=== PATIENT | female | born 1945 | race Caucasian/White ===

== ENCOUNTER → 2019-07-13 | Outpatient (CLI) | payer OTHER | LOC: SJCVCIMAG 14:11 | DX: I47.1 Supraventricular tachycardia (principal); R00.2 Palpitations; Z95.818 Presence of other cardiac implants and grafts ==

== ENCOUNTER → 2020-07-26 | Outpatient (CLI) | payer OTHER ==
[~2020-07-26] MED LIST: ASPIR 8181 MG PO; CITRACAL + BON1 EACH PO; CLOBETASOL PROP15 GM TP; LEVOTHYROXIN0.025 MG PO; MOBIC7.5 MG PO; MORPHINE SULFAT15 M3 PO; NASONEX17 GM NASAL; NEURONTIN 300300 M1 PO; OMEPRAZOLE20 M1 PO; TOPROL XL25 MG PO; VITAMINC500 PO; ZOCOR20 MG PO
== END ==
LOC: SJCVC 14:20
PROVIDERS: ATTEND Internal Medicine Cardiovascular Disease
DX: R94.31 Abnormal electrocardiogram [ECG] [EKG] (principal); I47.1 Supraventricular tachycardia; R00.2 Palpitations; M19.90 Unspecified osteoarthritis, unspecified site; Z72.89 Other problems related to lifestyle; Z95.818 Presence of other cardiac implants and grafts; Z79.82 Long term (current) use of aspirin; Z79.899 Other long term (current) drug therapy; Z88.1 Allergy status to other antibiotic agents; Z88.8 Allergy status to other drugs, medicaments and biological substances

== ENCOUNTER → 2021-04-04 | Outpatient (CLI) | payer OTHER | LOC: HYPER 08:44 | PROVIDERS: ATTEND Emergency Medicine | DX: S61.402A Unspecified open wound of left hand, initial encounter (principal); R60.0 Localized edema; I10 Essential (primary) hypertension; E03.9 Hypothyroidism, unspecified; M21.371 Foot drop, right foot; W19.XXXD Unspecified fall, subsequent encounter ==

== ENCOUNTER 2021-04-18 10:17 | Inpatient (IN) | payer OTHER ==
[~2021-04-18] VITALS: Ht 165.1 cm; Wt 55.0 kg
[2021-04-18 10:18] VITALS: BP 160/71
[2021-04-18 11:11] LABS: ABSOLUTE NEUTROPHILS 11.2 thou/uL (1.4-8.2); BASOPHILS 0.4 % (0.0-2.0); EOSINOPHILS 0.2 % (0.0-3.0); HEMATOCRIT 43.6 % (37.0-47.0); HEMOGLOBIN 13.8 gm/dL (12.0-15.0); LYMPHOCYTES 11.5 % (24.0-44.0); MCH 30.3 pg (26.0-34.0); MCHC 31.7 g/dL (28.0-37.0); MCV 95.6 fL (80.0-100.0); MONOCYTES 7.6 % (1.0-8.0); PLATELET COUNT 239 thou/uL (150-400); POLYS 80.3 % (36.0-66.0); RBC 4.56 mil/uL (4.20-5.00); RDW 13.5 % (10.5-14.5); WBC 13.9 thou/uL (4.0-11.0)
[2021-04-18 11:32] LABS: CALCIUM 9.2 mg/dL (8.5-10.1); CREATININE 0.8 mg/dL (0.6-1.0); POTASSIUM 3.8 mmol/L (3.5-5.1)
[2021-04-18 11:38] LABS: ALBUMIN 4.1 g/dL (3.4-5.0)
[2021-04-18 13:44] VITALS: BP 132/105
[2021-04-18 14:04] LABS: URINE BILIRUBIN NEGATIVE (Negative); URINE BLOOD TRACE (Negative); URINE CLARITY CLEAR; URINE COLOR YELLOW; URINE GLUCOSE-RANDOM* NEGATIVE (Negative); URINE KETONES 1+ (Negative); URINE LEUKOCYTES-REFLEX NEGATIVE (Negative); URINE NITRITE-REFLEX NEGATIVE (Negative); URINE PROTEIN (DIPSTICK) NEGATIVE (Negative); URINE SPECIFIC GRAVITY <= 1.005 (1.005-1.035); URINE UROBILINOGEN 0.2 E.U./dl (0.2-1.0)
[2021-04-18] MEDS ORDERED: MELOXICAM15 MG PO (14:20)
[2021-04-18] MEDS ORDERED: MELATONIN3 M1 PO (14:20)
[2021-04-18] MEDS ORDERED: DONEPEZIL HCL5 MG PO (14:20)
--- NOTE | 2021-04-18 15:39 | NUR ---
PT ORIENTED TO ROOM AND UNIT, BED LOW AND LOCKED, SIDE RAILS UPX3, CALL LIGHT IN REACH, TELE APPLIED. WILL CONTINUE TO ASSESS.
[2021-04-18 15:59] VITALS: BP 154/69
[2021-04-18 16:20] VITALS: BP 151/74
--- NOTE | 2021-04-18 18:39 | NUR ---
PT RESPONING TO GOLYTELY AND HAVING BOWEL MOVEMENTS VIA BEDSIDE KOMMODE.
[2021-04-18 19:11] VITALS: BP 149/67
[2021-04-18 23:10] VITALS: BP 135/87
[2021-04-19 04:30] VITALS: BP 141/71
[2021-04-19 07:19] VITALS: BP 118/57
[2021-04-19 09:02] LABS: ABSOLUTE NEUTROPHILS 5.6 thou/uL (1.4-8.2); BASOPHILS 0.6 % (0.0-2.0); EOSINOPHILS 1.8 % (0.0-3.0); HEMATOCRIT 36.2 % (37.0-47.0); HEMOGLOBIN 11.9 gm/dL (12.0-15.0); LYMPHOCYTES 20.5 % (24.0-44.0); MCH 31.5 pg (26.0-34.0); MCHC 32.8 g/dL (28.0-37.0); MONOCYTES 8.1 % (1.0-8.0); PLATELET COUNT 189 thou/uL (150-400); RBC 3.77 mil/uL (4.20-5.00); RDW 13.5 % (10.5-14.5); WBC 8.1 thou/uL (4.0-11.0)
[2021-04-19 09:25] LABS: CALCIUM 8.3 mg/dL (8.5-10.1); CREATININE 0.7 mg/dL (0.6-1.0); MAGNESIUM 2.4 mg/dL (1.8-2.4); POTASSIUM 3.3 mmol/L (3.5-5.1)
[2021-04-19 11:48] VITALS: BP 135/68
--- NOTE | 2021-04-19 12:45 | NUR ---
Nutrition: Pt admitted with abdominal pain. Fecal impaction. Pt taking Golytely. H/o HTN, HLD. Meds: statin, betaa-vidhya, metoprolol, cipro. Labs: K+ 3.3, albumin 4.1. Special precautions tray is ordered. Pt reported 110# for wt. BMI is slightly low, 18.3. RD will order Ensure for added kcal intake and wt maintenance. Consider mild risk at this time. RD to follow up on wts, po intake.
[2021-04-19 15:35] VITALS: BP 132/64
--- NOTE | 2021-04-19 18:24 | NUR ---
PT RESTING IN BED WITH SPOUSE AT BEDSIDE MOST OF THE SHIFT. PT UP TO BEDSIDE COMMODE MULTIPLE TIMES WITH LOOSE STOOLS. PT HAS GOLYTLE AND IS SLOWLY WITH LOTS OF ENCOURAGEMENT TO FINISH. PT WAS EXPLAINED TO BY DR. ABRAHAM THAT ALTHOUGH SHE IS HAVING LOOSE STOOLS SHE STILL AHS HARD IMPACTIONS THAT STILL REQUIRE THE MEDICATION TO ASSIST THEM. PT DENIES COMPLAINTS THROUGHOUT SHIFT.
[2021-04-19 19:30] VITALS: BP 158/77
[2021-04-20 03:18] LABS: HEMATOCRIT 33.2 % (37.0-47.0); HEMOGLOBIN 11.1 gm/dL (12.0-15.0); MCH 31.5 pg (26.0-34.0); MCHC 33.3 g/dL (28.0-37.0); MCV 94.5 fL (80.0-100.0); RBC 3.52 mil/uL (4.20-5.00); RDW 13.5 % (10.5-14.5); WBC 7.9 thou/uL (4.0-11.0)
[2021-04-20 04:19] VITALS: BP 155/93
[2021-04-20 04:23] LABS: CALCIUM 7.8 mg/dL (8.5-10.1); CREATININE 0.6 mg/dL (0.6-1.0); POTASSIUM 3.1 mmol/L (3.5-5.1)
[2021-04-20 07:00] VITALS: BP 155/80
[2021-04-20 16:30] VITALS: BP 150/69
--- NOTE | 2021-04-20 17:33 | NUR ---
PT RESTED COMFORTABLE IN BED. USED BEDSIDE COMMODE SEVERAL TIMES AND HAD LOOSE STOOLS. PT DENIED ANY COMPLAINTS. NEW IV STARTED ON THE LEFT FOREARM DUE TO THE RIGHT AC BEING POSITIONAL.
[2021-04-20 20:15] VITALS: BP 139/67
--- NOTE | 2021-04-20 21:03 | NUR ---
SHORTLY AFTER SHIFT CHANGE NURSE WENT TO PATIENTS ROOM BECAUSE OF ACTIVATED BED ALARM. PATIENT MADE STATEMENTS THAT SHOWED CONFUSION. NJURSE CLEANED UP BLOOD FROM DISLODGED IV MADE THE ENVIROMENT SAFE. NEW IV STARTED.
[2021-04-21 04:45] VITALS: BP 145/66
[2021-04-21 07:27] LABS: ABSOLUTE NEUTROPHILS 3.6 thou/uL (1.4-8.2); BASOPHILS 0.4 % (0.0-2.0); EOSINOPHILS 3.3 % (0.0-3.0); HEMATOCRIT 37.4 % (37.0-47.0); HEMOGLOBIN 11.9 gm/dL (12.0-15.0); LYMPHOCYTES 21.9 % (24.0-44.0); MCH 30.4 pg (26.0-34.0); MCHC 31.8 g/dL (28.0-37.0); MCV 95.6 fL (80.0-100.0); MONOCYTES 9.9 % (1.0-8.0); PLATELET COUNT 207 thou/uL (150-400); POLYS 64.5 % (36.0-66.0); RBC 3.91 mil/uL (4.20-5.00); RDW 13.6 % (10.5-14.5); WBC 5.7 thou/uL (4.0-11.0)
[2021-04-21 07:30] VITALS: BP 129/67
[2021-04-21 07:52] LABS: ALBUMIN 3.1 g/dL (3.4-5.0); CALCIUM 8.7 mg/dL (8.5-10.1); CREATININE 0.7 mg/dL (0.6-1.0); MAGNESIUM 2.1 mg/dL (1.8-2.4); POTASSIUM 4.3 mmol/L (3.5-5.1); TOTAL BILIRUBIN 0.4 mg/dL (0.2-1.0); TOTAL PROTEIN 6.1 g/dL (6.4-8.2)
[2021-04-21 13:33] VITALS: BP 127/61
[2021-04-21 20:20] VITALS: BP 122/58
[2021-04-21 23:52] VITALS: BP 152/66
--- NOTE | 2021-04-22 03:30 | NUR ---
PATIENT IS A/0X3 BUT CONFUSED AT TIMES. SHE IS IMPULSIVE AND ATTEMPTS TO SIT UP AND TAKE SELF TO BSC OR PICK THINGS UP OFF THE FLOOR OR MOVE THINGS CLOSER TO HER. SHE KNOCKED HER CANE OVER TONIGHT WHICH HIT HER IV TUBING AND PULLED HER IV OUT. NEW IV PUT IN BY ANOTHER NURSE. SHE TOLERATED WELL. SHE TOOK HER PO MEDS WHOLE WITH WATER. SHE CONTINUES WITH IV ANTIBIOTICS SCHEDULED. SHE HAS HAD 2 BROWN WATERY STOOLS TONIGHT. SHE CONTINUES WITH MIRALAX. FERNÁNDEZ CATHETER IN PLACE DRAINING CLEAR YELLOW URINE. BED IN LOW POSITION AND BED ALARM IS ON. CONTINUING TO MONITOR. PT TO HAVE CT OF PELVIS WITHOUT CONTRAST 04/22 AT 0800 AND 04/22 MRI WITH OUT CONTRAST OF LUMBAR SPINE 0800. DENIES PAIN. CONTINUING TO MONITOR.
[2021-04-22 04:19] VITALS: BP 137/69
[2021-04-22 07:21] VITALS: BP 125/66
[2021-04-22 08:43] LABS: ABSOLUTE NEUTROPHILS 2.4 thou/uL (1.4-8.2); BASOPHILS 0.6 % (0.0-2.0); EOSINOPHILS 3.7 % (0.0-3.0); HEMATOCRIT 39.8 % (37.0-47.0); HEMOGLOBIN 12.9 gm/dL (12.0-15.0); LYMPHOCYTES 30.5 % (24.0-44.0); MCH 30.8 pg (26.0-34.0); MCHC 32.4 g/dL (28.0-37.0); MCV 94.9 fL (80.0-100.0); MONOCYTES 11.9 % (1.0-8.0); PLATELET COUNT 215 thou/uL (150-400); POLYS 53.3 % (36.0-66.0); RDW 13.6 % (10.5-14.5); WBC 4.5 thou/uL (4.0-11.0)
[2021-04-22 08:59] LABS: CREATININE 0.7 mg/dL (0.6-1.0); MAGNESIUM 2.2 mg/dL (1.8-2.4); PHOSPHORUS 3.8 mg/dL (2.6-4.7); POTASSIUM 3.9 mmol/L (3.5-5.1)
[2021-04-22 11:34] VITALS: BP 144/73
--- NOTE | 2021-04-22 12:07 | NUR ---
Removed hall catheter per Dr. Coronado.
--- NOTE | 2021-04-22 15:50 | NUR ---
PT ADMITTED RELATED TO STERCORAL COLITIS AND FECAL IMPACTION. CM REVIEWED CHART AND SPOKE WITH CARE TEAM. CM MET WITH PT AT BEDSIDE THIS DAY. PT APPEARED TO BE A&O X4. CM ROLE INTRODUCED. PT INDICATED SHE LIVES IN A HOUSE WITH HER SPOUSE WITH NO STEPS TO ENTER AND NO STEPS INSIDE. PT INDICATED SHE HAD BEEN INDEPENDENT WITH [employer] RE[employer]AT[employer] AND HAS A CANE FOR HOME USE. PT INDICATED SHE HAD JUST BEEN DISCHARGED FROM HH SERVICES WITH [facility] ABOUT 2 WEEKS AGO. PT INDICATED SHE WOULD BE RECEPTIVE TO HH [facility] IF RECOMMENDED UPON DC. CM FOLLOWING REGARDING DC PLANNING.
[2021-04-22 15:56] VITALS: BP 143/61
--- NOTE | 2021-04-22 18:50 | NUR ---
Patient did well throughout my shift. Loera catheter removed and patient has not had any issue voiding. Multiple bowel movements throughout the day. All questions and concerns were addressed
[2021-04-22 19:58] VITALS: BP 152/74
[2021-04-23 00:48] VITALS: BP 133/75
--- NOTE | 2021-04-23 03:19 | NUR ---
ASSUMED PT CARE THIS PM. PT IS ALERT AND ORIENTED X4. PT REFUSED SCHEDULED MIRLAX DUE TO FREQUENT BM DURING THE DAY. MEDS WERE GIVEN PER EMAR ORDERS. PT DID NOT VERBALIZE ANY CONCERNS AND NO VISIBLE SIGN OF DISTRESS WAS NOTED. FALL PRECAUTIONS IN PLACE. WILL CONTINUE TO MONITOR.
[2021-04-23 07:16] VITALS: BP 124/64
[2021-04-23 11:27] VITALS: BP 104/52
[2021-04-23] MEDS ORDERED: LEVOTHYROXINE25 MC1 PO (14:00)
[2021-04-23] MEDS ORDERED: METAMUCIL FIBE3.4 GM PO (14:00)
[2021-04-23] MEDS ORDERED: ACETAMINOPHEN325 M1 PO (14:00)
[2021-04-23] MEDS ORDERED: CIPRO500 M1 PO (14:02)
[2021-04-23] MEDS ORDERED: METRONIDAZOLE500 M4 PO (14:02)
[2021-04-23 16:04] VITALS: BP 104/52
--- NOTE | 2021-04-23 16:37 | NUR ---
Pt A & O x4. Pt VS stable. Pt received medications as ordered. pt is NSR on the tele. Pt is SBA with cares and ADLs. Pt received discharge orders to home. Discharge instructions reviewed with pt and pt verbalized understanding and signed instructions. Pt wheeled to enterence in wheel chair by staff with personal belongings and left hospital without incident in private vehicle
== END 2021-04-23 18:04 | disposition home or self-care (01) | DRG 871 ==
LOC: ER 10:17 → 2N 14:01 → EROBS 14:01 → 2N 15:56 → 4W 04-21 07:15
PROVIDERS: Emergency Medicine; Hospitalist; Internal Medicine; Nurse Practitioner; ADMIT Internal Medicine; ATTEND Internal Medicine
DX: A41.9 Sepsis, unspecified organism (principal); E43 Unspecified severe protein-calorie malnutrition; K62.89 Other specified diseases of anus and rectum; K56.41 Fecal impaction; D64.9 Anemia, unspecified; E87.6 Hypokalemia; R33.9 Retention of urine, unspecified; Z20.822 Contact with and (suspected) exposure to COVID-19; M19.90 Unspecified osteoarthritis, unspecified site; I10 Essential (primary) hypertension; K52.89 Other specified noninfective gastroenteritis and colitis; E03.9 Hypothyroidism, unspecified; E78.5 Hyperlipidemia, unspecified; M85.80 Other specified disorders of bone density and structure, unspecified site; R26.9 Unspecified abnormalities of gait and mobility; M21.371 Foot drop, right foot; K57.30 Diverticulosis of large intestine without perforation or abscess without bleeding; K21.9 Gastro-esophageal reflux disease without esophagitis; M48.061 Spinal stenosis, lumbar region without neurogenic claudication; M43.17 Spondylolisthesis, lumbosacral region; Z88.8 Allergy status to other drugs, medicaments and biological substances; Z79.899 Other long term (current) drug therapy; Z68.20 Body mass index [BMI] 20.0-20.9, adult
CPT/HCPCS: 10045; 10081

== ENCOUNTER → 2021-05-22 | Outpatient (CLI) | payer OTHER ==
[~2021-05-22] MED LIST changes: +ACETAMINOPHEN325 M1 PO; +ASA81BEC PO; +CIPRO500 M1 PO; +DONEPEZIL HCL5 MG PO; +LEVOTHYROXINE25 MC1 PO; +MELATONIN3 M1 PO; +MELOXICAM15 MG PO; +MELOXICAM7.5 MG PO; +METAMUCIL FIBE3.4 GM PO; +METRONIDAZOLE500 M4 PO; +PRESERVISION T1 EACH PO; +VITAMIN D325 MC3 PO
== END ==
LOC: LAB 09:50
PROVIDERS: ATTEND Student in an Organized Health Care Education/Training Program
DX: Z01.812 Encounter for preprocedural laboratory examination (principal); Z20.822 Contact with and (suspected) exposure to COVID-19

== ENCOUNTER → 2021-06-07 | Outpatient (CLI) | payer OTHER ==
[~2021-06-07] VITALS: Ht 165.1 cm; Wt 22.6 kg
== END ==
LOC: LAB 08:34
PROVIDERS: ATTEND Student in an Organized Health Care Education/Training Program
DX: Z20.822 Contact with and (suspected) exposure to COVID-19 (principal)

== ENCOUNTER → 2021-06-10 | Outpatient (CLI) | payer OTHER ==
[~2021-06-10] VITALS: Ht 165.1 cm; Wt 49.9 kg
== END | disposition home or self-care (01) ==
LOC: GI 05-27 10:46
PROVIDERS: ATTEND Internal Medicine Gastroenterology
DX: Z12.11 Encounter for screening for malignant neoplasm of colon (principal); Z86.010 Personal history of colon polyps; K57.30 Diverticulosis of large intestine without perforation or abscess without bleeding; I10 Essential (primary) hypertension; E78.00 Pure hypercholesterolemia, unspecified; M10.9 Gout, unspecified; E03.9 Hypothyroidism, unspecified; Z98.890 Other specified postprocedural states; Z79.899 Other long term (current) drug therapy; Z88.8 Allergy status to other drugs, medicaments and biological substances
CPT/HCPCS: 62110; 62900